=== PATIENT | female | born 1980 | race Caucasian/White ===

== ENCOUNTER → 2016-06-11 | Outpatient (CLI) | payer BC, OTHER ==
[~2016-06-11] MED LIST: PRENTAB69 PO
--- NOTE | 2016-06-11 09:51 | DIAGNOSTIC IMAGING REPORT ---
RIGHT HIP UNILATERAL MIN 2 VIEWS CLINICAL HISTORY: RIGHT HIP PAIN Right pain COMPARISON: None. DISCUSSION: Moderate calcific trochanteric bursitis. A synovial calcification may present in similar fashion. Mild degenerative change of the right hip joint space. No evidence for acetabular protrusion. There is no evidence for soft tissue swelling. IMPRESSION: Mild degenerative change right hip. Synovial calcification versus calcific trochanteric bursitis type change. Electronically signed by: Andrade Rivera M.D. 06/11/2016 9:50 AM Dictated Date/Time: 06/11/2016 9:48 AM
== END | disposition home or self-care (01) ==
LOC: C.RDSM 14:51
PROVIDERS: ATTEND Internal Medicine
DX: M25.551 Pain in right hip (principal)

== ENCOUNTER → 2016-11-27 | Outpatient (CLI) | payer OTHER | END | disposition home or self-care (01) | LOC: C.PAPS 15:00 | PROVIDERS: ATTEND Obstetrics & Gynecology | DX: Z12.4 Encounter for screening for malignant neoplasm of cervix (principal) ==

== ENCOUNTER → 2017-04-22 | Outpatient (CLI) | payer OTHER ==
--- NOTE | 2017-04-22 11:09 | DIAGNOSTIC IMAGING REPORT ---
R HIP UNILATERAL MIN 2 VIEWS CLINICAL HISTORY: Right hip pain. COMPARISON: Right hip radiographs June 11, 2016. FINDINGS: Alignment of the right hip is anatomic. No fracture or suspicious lesion is identified. There is mild osteophytosis along the superior acetabulum. Amorphous calcific density shown lateral to the right femoral neck shown on prior exam is no longer identified. IMPRESSION: 1. No acute fracture. 2. Preserved right hip joint space with mild osteophytosis along the superior acetabulum. 3. Nonvisualization of the amorphous calcification shown lateral to the right femoral neck on prior exam. Electronically signed by: Nathaniel Eller M.D. 04/22/2017 11:07 AM Dictated Date/Time: 04/22/2017 11:06 AM
== END | disposition home or self-care (01) ==
LOC: C.RDSM 11:01
PROVIDERS: ATTEND Internal Medicine
DX: M25.551 Pain in right hip (principal)